=== PATIENT | female | born 1960 | race Caucasian/White ===

== ENCOUNTER 2017-03-02 11:49 | Emergency (ER) | payer BC ==
--- NOTE | 2017-03-02 14:44 | CR ---
Chest 2V FINDINGS: The heart and vascular structures are normal in appearance. No infiltrates or effusions ar e demonstrated. The skeletal structures are unremarkable. IMPRESSION: Negative exam.
[2017-03-02 14:45] VITALS: BP 181/96
[2017-03-02] MEDS ORDERED: Potassium Chloride 20 MEQ Tab.ER PO ONE (15:27)
--- NOTE | 2017-03-02 15:31 | EDM.PDOC ---
ED HPI GENERAL MEDICAL PROBLEM - General Chief Complaint: Cardiovascular Problem Stated Complaint: BLOOD PRESSURE IS HIGH Time Seen by Provider: 03/02/17 14:05 Source of Information: Reports: Patient History Limitations: Reports: No Limitations - History of Present Illness INITIAL COMMENTS - FREE TEXT/NARRATIVE: Patient presents for evaluation and treatment persistent blood pressure elevation. The patient's blood pressure was previously treated with metoprolol and hydrochlorothiazide. The hydrochlorothiazide was discontinued due to hypo- kalemia. Recently her blood pressures elevated, it was thought that her neck pain was causing the elevation of her blood pressure. She did have injections in her neck and her blood pressure remains elevated when the pain has been relieved. She will reinitiate hydrochlorothiazide last week, blood pressure remains elevated. 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) - Related Data Allergies Allergy/AdvReac Type Severity Reaction Status Date / Time hydrocodone bitartrate Allergy Itching Verified 03/02/17 13:52 [From Vicodin] Home Meds: Home Meds Cholecalciferol (Vitamin D3) [Vitamin D] 1 tab PO DAILY 11/05/14 [History] Magnesium 200 mg PO DAILY 11/05/14 [History] Metoprolol Succinate [Toprol XL] 25 mg PO DAILY 11/05/14 [History] [place]-3 Fatty Acids/Fish Oil [Fish Oil 1,200 mg Softgel] 1 cap PO DAILY [History] Vitamin B Complex 1 cap PO DAILY 11/05/14 [History] Acetaminophen/Caffeine [Excedrin Tension Headache] 2 tab PO DAILY PRN 03/02/17 [ History] Hydrochlorothiazide 1 tab PO DAILY 03/02/17 [History] Multivitamin [Multivitamins] 1 tab PO DAILY 03/02/17 [History] Ribose [Cytose] 1 dose PO DAILY 03/02/17 [History] Sertraline [Zoloft] 1 tab PO DAILY 03/02/17 [History] Vit C/Clark [place] Cel[place] Ex/Grp E [[place]] 1 tab PO BID 03/02/17 [History] Past Medical History HEENT History: Reports: Impaired Vision Cardiovascular History: Reports: Hypertension Respiratory History: Reports: Sleep Apnea 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: Neurological History: Reports: Headaches, Chronic Psychiatric History: Reports: Anxiety, Depression - Past Surgical History Female Surgical History: Reports: Hysterectomy Endocrine Surgical History: Reports: Parathyroidectomy Social & Family History - Tobacco Use Smoking Status *Q: Never Smoker - Alcohol Use Days Per Week of Alcohol Use: 0 - Recreational Drug Use Recreational Drug Use: No ED ROS GENERAL - Review of Systems Review Of Systems: See Below Constitutional: Reports: No Symptoms HEENT: Reports: No Symptoms Respiratory: Reports: No Symptoms Cardiovascular: Reports: No Symptoms Endocrine: Reports: No Symptoms GI/Abdominal: Reports: No Symptoms : Reports: No Symptoms Musculoskeletal: Reports: No Symptoms Skin: Reports: No Symptoms Neurological: Reports: No Symptoms Psychiatric: Reports: No Symptoms ED EXAM, GENERAL - Physical Exam Exam: See Below Exam Limited By: No Limitations General Appearance: Alert, WD/WN, No Apparent Distress, Anxious Eye Exam: Bilateral Eye: Normal Inspection Ears: Normal External Exam, Hearing Grossly Normal Nose: Normal Inspection Throat/Mouth: Normal Inspection, Normal Lips, Normal Voice Head: Atraumatic, Normocephalic Neck: Normal Inspection Respiratory/Chest: No Respiratory Distress, Lungs Clear Cardiovascular: Normal Peripheral Pulses, Regular Rate, Rhythm, No Murmur GI/Abdominal: Soft Back Exam: Normal Inspection Extremities: Normal Inspection Neurological: Alert, Oriented Psychiatric: Normal Affect, Normal Mood Skin Exam: Warm, Dry, Intact, Normal Color, No Rash Lymphatic: No Adenopathy Course - Vital Signs Last Recorded V/S: Last Vital Signs Temp 96.0 F 03/02/17 13:50 Pulse 61 03/02/17 14:45 Resp 14 03/02/17 14:45 BP 181/96 H 03/02/17 14:45 Pulse Ox 97 03/02/17 14:45 - Orders/Labs/Meds Labs: Laboratory Tests 03/02/17 03/02/17 03/02/17 Range/Units 14:13 14:13 14:43 WBC 13.9 H (4.5-11.0) K/uL RBC 5.21 (3.30-5.50) M/uL Hgb 15.1 H D (12.0-15.0) g/dL Hct 45.0 (36.0-48.0) % MCV 86 (80-98) fL MCH 29 (27-31) pg MCHC 34 (32-36) % Plt Count 295 (150-400) K/uL Neut % (Auto) 65 (36-66) % Lymph % (Auto) 21 L (24-44) % [place] % (Auto) 12 H (2-6) % Eos % (Auto) 1 L (2-4) % Baso % (Auto) 1 (0-1) % Sodium 139 L (140-148) mmol/L Potassium 3.5 L (3.6-5.2) mmol/L Chloride 98 L (100-108) mmol/L Carbon Dioxide 35 H (21-32) mmol/L Anion Gap 9.5 (5.0-14.0) mmol/L BUN 17 (7-18) mg/dL Creatinine 0.8 (0.6-1.0) mg/dL Est Cr Clr Drug Dosing 66.19 mL/min Estimated GFR (MDRD) > 60 (>60) Glucose 87 (74-106) mg/dL Calcium 9.1 (8.5-10.1) mg/dL Total Bilirubin 0.4 (0.2-1.0) mg/dL AST 17 (15-37) U/L ALT 44 D (12-78) U/L Alkaline Phosphatase 61 (46-116) U/L Total Protein 8.1 (6.4-8.2) g/dL Albumin 3.9 (3.4-5.0) g/dL Globulin 4.2 H (2.3-3.5) g/dL Albumin/Globulin Ratio 0.9 L (1.2-2.2) Urine Color Yellow Urine Appearance Slightly cloudy Urine pH 6.5 (4.5-8.0) Ur Specific [place] 1.005 L (1.008-1.030) Urine Protein Negative (NEGATIVE) mg/dL Urine Glucose (UA) Negative (NEGATIVE) mg/dL Urine Ketones Negative (NEGATIVE) mg/dL Urine Occult Blood Large (NEGATIVE) Urine Nitrite Negative (NEGATIVE) Urine Bilirubin Negative (NEGATIVE) Urine Urobilinogen Normal (NORMAL) mg/dL Ur Leukocyte Esterase Negative (NEGATIVE) Urine RBC 50-75 H (0-5) Urine WBC Not seen (0-5) Ur Epithelial Cells Few Amorphous Sediment Rare Urine Bacteria Rare Urine Mucus Rare Meds: Medications Discontinued Medications Generic Name Dose Route Start Last Admin Trade Name Sarwat PRN Reason Stop Dose Admin Potassium Chloride 40 meq 03/02/17 15:27 03/02/17 15:35 Klor-Con M20 PO 03/02/17 15:28 40 meq ONETIME ONE Administration Departure - Departure Time of Disposition: 15:28 Disposition: Home, Self-Care 01 Condition: Good (Essential hypertension) Clinical Impression: Essential hypertension Instructions: Hypertension, [id number] Referrals: Tulio Peñaloza MD [Primary Care Provider] - Forms: ED Department Discharge Additional Instructions: Patient is evaluated in the emergency room for her high blood pressure. The patient's blood pressure has not return to normal after having her neck pain treated. The hydrochlorothiazide has not returned her blood pressure to normal levels. The patient does have microscopic blood in the urine. She does have elevated hemoglobin. The patient's chest x-ray showed no abnormalities. The patient will stop taking hydrochlorothiazide. She was given a dose of potassium chloride in the emergency room. She is advised to eat a banana daily to keep her potassium level elevated. The patient will be started on lisinopril 10 mg daily. She'll follow up with her health care provider to monitor her blood pressure control. - Problem List & Annotations (1) Essential hypertension SNOMED Code(s): 62572909 Code(s): I10 - ESSENTIAL (PRIMARY) HYPERTENSION Status: Acute Priority: Medium Current Visit: Yes - Problem List Review Problem List Initiated/Reviewed/Updated: Yes
== END 2017-03-02 15:45 | disposition home or self-care (01) ==
LOC: JP.ED 11:49
DX: I10 Essential (primary) hypertension (principal); H54.7 Unspecified visual loss; F41.9 Anxiety disorder, unspecified; F32.9 Major depressive disorder, single episode, unspecified; Z88.8 Allergy status to other drugs, medicaments and biological substances; Z90.710 Acquired absence of both cervix and uterus; Z79.899 Other long term (current) drug therapy
CPT/HCPCS: 36415; 71020; 80053; 81001; 85025; 99284; A9270

== ENCOUNTER 2018-08-22 11:52 | Emergency (ER) | payer BC ==
[2018-08-22] MEDS ORDERED: Nitroglycerin 0.4 MG Tab.SL ONE (12:38)
[2018-08-22] MEDS ORDERED: Aspirin 81 MG Tab.Chew ONE (12:38)
[2018-08-22] MEDS ORDERED: Aspirin 81 MG Tab.Chew PO ONE (12:39)
[2018-08-22] MEDS ORDERED: Nitroglycerin 0.4 MG Tab.SL SL ONE (12:40)
--- NOTE | 2018-08-22 13:15 | EDM.PDOC ---
ED HPI GENERAL MEDICAL PROBLEM - General Chief Complaint: Gastrointestinal Problem Stated Complaint: ABDOMINAL PAIN/CHEST PRESSURE Time Seen by Provider: 08/22/18 12:20 Source of Information: Reports: Patient History Limitations: Reports: No Limitations - History of Present Illness INITIAL COMMENTS - FREE TEXT/NARRATIVE: 51-year-old with history of hypertension who presents with concerns of chest pain. She reports that she was sitting at her computer at approximately 9:30 this morning when she had the sudden onset of chest pain. The pain is achy. It radiates into her back. It does not go down her arm. There is no associated dyspnea or cough. There does seem to be a positional component to the pain. No changes with exertion. No history of cardiac disease. No family history of heart disease. No nausea vomiting or diarrhea/bloody stools. No history of blood clots. No lower extremity swelling or pain, recent travel or surgery. - Related Data Allergies Allergy/AdvReac Type Severity Reaction Status Date / Time hydrocodone bitartrate Allergy Itching Verified 08/22/18 12:11 [From Vicodin] Home Meds: Home Meds Cholecalciferol (Vitamin D3) [Vitamin D] 1 tab PO DAILY 11/05/14 [History] Magnesium 200 mg PO DAILY 11/05/14 [History] [place]-3 Fatty Acids/Fish Oil [Fish Oil 1,200 mg Softgel] 1 cap PO DAILY [History] Vitamin B Complex 1 cap PO DAILY 11/05/14 [History] Acetaminophen/Caffeine [Excedrin Tension Headache] 2 tab PO DAILY PRN 03/02/17 [ History] Multivitamin [Multivitamins] 1 tab PO DAILY 03/02/17 [History] Sertraline [Zoloft] 1 tab PO DAILY 03/02/17 [History] amLODIPine Besylate [Amlodipine Besylate] 1 tab PO DAILY 08/22/18 [History] Past Medical History HEENT History: Reports: Impaired Vision Cardiovascular History: Reports: Hypertension Respiratory History: Reports: Sleep Apnea 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: Neurological History: Reports: Headaches, Chronic Psychiatric History: Reports: Anxiety, Depression - Past Surgical History Female Surgical History: Reports: Hysterectomy Endocrine Surgical History: Reports: Parathyroidectomy Social & Family History - Tobacco Use Smoking Status *Q: Never Smoker ED ROS GENERAL - Review of Systems Review Of Systems: See Below Constitutional: Reports: No Symptoms HEENT: Reports: No Symptoms Respiratory: Denies: Shortness of Breath Cardiovascular: Reports: Chest Pain Endocrine: Reports: No Symptoms GI/Abdominal: Reports: No Symptoms : Reports: No Symptoms Musculoskeletal: Reports: No Symptoms Skin: Reports: No Symptoms Neurological: Reports: No Symptoms Psychiatric: Reports: No Symptoms Hematologic/Lymphatic: Reports: No Symptoms Immunologic: Reports: No Symptoms ED EXAM, GI/ABD - Physical Exam Exam: See Below Exam Limited By: No Limitations General Appearance: Alert, WD/WN Ears: Normal External Exam Nose: Normal Inspection Throat/Mouth: Normal Inspection Head: Atraumatic, Normocephalic Neck: Normal Inspection Respiratory/Chest: No Respiratory Distress, Lungs Clear, Other (no chest wall tenderness) Cardiovascular: Regular Rate, Rhythm GI/Abdominal Exam: Soft, Non-Tender Back Exam: Normal Inspection Extremities: Normal Inspection Neurological: Alert, Oriented Psychiatric: Normal Affect, Normal Mood Skin Exam: Warm, Dry EKG INTERPRETATION EKG Date: 08/22/18 Rhythm: NSR [place]: Normal P-Wave: Present QRS: Normal ST-T: Normal Course - Vital Signs Last Recorded V/S: Last Vital Signs Temp 35.1 C L 08/22/18 12:21 Pulse 83 08/22/18 14:31 Resp 16 08/22/18 14:31 BP 153/84 H 08/22/18 15:17 Pulse Ox 100 08/22/18 14:31 - Orders/Labs/Meds Orders: Active Orders 24 hr Category Date Time Status EKG Documentation Completion [RC] ASDIRECTED Care 08/22/18 12:39 Active Abdomen Ltd [US] Stat Exams 08/22/18 13:32 Taken Chest 2V [CR] Stat Exams 08/22/18 12:39 Taken EKG 12 Lead [EK] Routine Ther 08/22/18 12:39 Ordered Labs: Laboratory Tests 08/22/18 08/22/18 08/22/18 Range/Units 12:47 12:47 12:47 WBC 8.0 (4.5-11.0) K/uL RBC 4.55 (3.30-5.50) M/uL Hgb 12.9 D (12.0-15.0) g/dL Hct 38.7 (36.0-48.0) % MCV 85 (80-98) fL MCH 28 (27-31) pg MCHC 33 (32-36) % Plt Count 228 (150-400) K/uL Sodium 140 (140-148) mmol/L Potassium 3.4 L (3.6-5.2) mmol/L Chloride 100 (100-108) mmol/L Carbon Dioxide 31 (21-32) mmol/L Anion Gap 12.4 (5.0-14.0) mmol/L BUN 12 (7-18) mg/dL Creatinine 0.9 (0.6-1.0) mg/dL Est Cr Clr Drug Dosing 58.12 mL/min Estimated GFR (MDRD) > 60 (>60) Glucose 149 H (74-106) mg/dL Calcium 8.9 (8.5-10.1) mg/dL Total Bilirubin 1.2 H D (0.2-1.0) mg/dL AST 94 H D (15-37) U/L ALT 99 H (12-78) U/L Alkaline Phosphatase 60 (46-116) U/L Troponin I < 0.017 (0.000-0.056) ng/mL Total Protein 7.1 (6.4-8.2) g/dL Albumin 3.4 (3.4-5.0) g/dL Globulin 3.7 H (2.3-3.5) g/dL Albumin/Globulin Ratio 0.9 L (1.2-2.2) Lipase 132 (73-393) U/L 08/22/18 Range/Units 15:31 WBC (4.5-11.0) K/uL RBC (3.30-5.50) M/uL Hgb (12.0-15.0) g/dL Hct (36.0-48.0) % MCV (80-98) fL MCH (27-31) pg MCHC (32-36) % Plt Count (150-400) K/uL Sodium (140-148) mmol/L Potassium (3.6-5.2) mmol/L Chloride (100-108) mmol/L Carbon Dioxide (21-32) mmol/L Anion Gap (5.0-14.0) mmol/L BUN (7-18) mg/dL Creatinine (0.6-1.0) mg/dL Est Cr Clr Drug Dosing mL/min Estimated GFR (MDRD) (>60) Glucose (74-106) mg/dL Calcium (8.5-10.1) mg/dL Total Bilirubin (0.2-1.0) mg/dL AST (15-37) U/L ALT (12-78) U/L Alkaline Phosphatase (46-116) U/L Troponin I < 0.017 (0.000-0.056) ng/mL Total Protein (6.4-8.2) g/dL Albumin (3.4-5.0) g/dL Globulin (2.3-3.5) g/dL Albumin/Globulin Ratio (1.2-2.2) Lipase (73-393) U/L Meds: Medications Discontinued Medications Generic Name Dose Route Start Last Admin Trade Name Sarwat PRN Reason Stop Dose Admin Aspirin 324 mg 08/22/18 12:39 08/22/18 12:40 Aspirin PO 08/22/18 12:40 324 mg ONETIME ONE Administration Aspirin Confirm 08/22/18 12:38 Aspirin Administered 08/22/18 12:39 Dose 324 mg .ROUTE .STK-MED ONE Nitroglycerin 0.4 mg 08/22/18 12:40 08/22/18 12:58 Nitrostat SL 08/22/18 12:41 0.4 mg ONETIME ONE Administration Nitroglycerin Confirm 08/22/18 12:38 Nitrostat Administered 08/22/18 12:39 Dose 0.4 mg .ROUTE .STK-MED ONE - Re-Assessments/Exams Free Text/Narrative Re-Assessment/Exam: 57-year-old who presents to concerns of sudden onset chest pain this morning. On exam noted normal vital signs, no appreciable chest wall tenderness. No abdominal tenderness EKG is nonischemic When initiate workup with labs included troponin testing, chest x-ray, administer aspirin and trial of nitroglycerin. 08/22/18 13:14 Free Text/Narrative Re-Assessment/Exam: Initial work up remarkable for elevated LFTs. CXR normal. Pain resolved Obtained RUQ US - shows stones in the GB neck. Repeat troponin negative. Symptoms due seem consistent with symptomatic cholelithiasis, patient does endorse eating becerril prior to onset of pain today. We discussed surgical referral for elective cholecystectomy, patient declining this at this time. Safe for discharge, discussed dietary modification, with f/u with PCP 08/22/18 16:05 Departure - Departure Time of Disposition: 16:08 Disposition: Home, Self-Care 01 Clinical Impression: Cholelithiasis Qualifiers: Cholelithiasis location: gallbladder Cholecystitis presence: without cholecystitis Biliary obstruction: without biliary obstruction Qualified Code(s) : K80.20 - Calculus of gallbladder without cholecystitis without obstruction - Discharge Information *PRESCRIPTION DRUG MONITORING PROGRAM REVIEWED*: No *COPY OF PRESCRIPTION DRUG MONITORING REPORT IN PATIENT FELIX: No Referrals: Tulio Peñaloza MD [Primary Care Provider] - Forms: ED Department Discharge Additional Instructions: You are being diagnosed with symptomatic gallstones Please return to the ER for fevers, worsening or persistent pain as discussed Follow up with your primary doctor to discuss referral to a surgeon - My Orders Last 24 Hours: My Active Orders 08/22/18 12:39 EKG Documentation Completion [RC] ASDIRECTED Chest 2V [CR] Stat EKG 12 Lead [EK] Routine 08/22/18 13:32 Abdomen Ltd [US] Stat - Assessment/Plan Last 24 Hours: My Active Orders 08/22/18 12:39 EKG Documentation Completion [RC] ASDIRECTED Chest 2V [CR] Stat EKG 12 Lead [EK] Routine 08/22/18 13:32 Abdomen Ltd [US] Stat
[2018-08-22 15:17] VITALS: BP 153/84
--- NOTE | 2018-08-23 08:55 | CR ---
CHEST: 2 view CLINICAL HISTORY:Chest pain COMPARISON:2017 FINDINGS: The heart size, pulmonary vascular and hilar structures are normal. No infiltrate effusion or pneumothorax is seen. IMPRESSION: No acute cardiopulmonary process.
== END 2018-08-22 16:26 | disposition home or self-care (01) ==
LOC: JP.ED 11:52
DX: K80.20 Calculus of gallbladder without cholecystitis without obstruction (principal); I10 Essential (primary) hypertension; F41.9 Anxiety disorder, unspecified; F32.9 Major depressive disorder, single episode, unspecified; Z88.5 Allergy status to narcotic agent; Z79.899 Other long term (current) drug therapy
CPT/HCPCS: 36415; 71046; 76705; 80053; 83690; 84484; 85027; 93005; 99285; A9270

== ENCOUNTER 2019-02-21 08:35 | Day surgery (SDC) | payer BC ==
[2019-02-21] MEDS ORDERED: Midazolam 1 MG/ML 2 ML SDV ONE (09:01)
[2019-02-21] MEDS ORDERED: Propofol 200 MG/20 ML SDV ONE ×2 (09:01→11:10)
[2019-02-21] MEDS ORDERED: fentaNYL 100 MCG/2 ML SDV ONE (09:01)
[2019-02-21] MEDS ORDERED: Lactated Ringers 1,000 ML IV SCH (09:45)
[2019-02-21] MEDS ORDERED: Lidocaine 1% with EPINEPHrine 1:100,000 50 ML MDV ONE (10:09)
[2019-02-21] MEDS ORDERED: Bupivacaine 0.5% 50 ML MDV ONE (10:09)
[2019-02-21 12:26] VITALS: BP 126/90; PULSE 81
--- NOTE | 2019-02-22 08:33 | OR ---
DATE OF PROCEDURE: 02/21/2019 PREOPERATIVE DIAGNOSES: Colon cancer screening, external hemorrhoid. POSTOPERATIVE DIAGNOSES: Unremarkable colonoscopy, external hemorrhoid. PROCEDURE: Colonoscopy to the cecum with external hemorrhoidectomy. SURGEON: Armando Bejarano MD ANESTHESIA: IV anesthesia with monitored anesthesia care. INDICATION: This 58-year-old white female is referred for a colonoscopy for colon cancer screening. Her last colonoscopic exam was done 10 years ago. She complains of an external hemorrhoid and would like to have it removed also. I counseled her then for a colonoscopy with possible biopsy and polypectomy and hemorrhoidectomy, including risks alternatives, and she gave her informed consent to proceed. DESCRIPTION OF PROCEDURE: The patient was placed in the left lateral decubitus position. IV anesthesia was administered by the Anesthesia Service. Time-out was held. A rectal exam was performed, which was unremarkable except for the external hemorrhoid. The flexible video Olympus colonoscope was introduced through her anus, up her rectum, and out her colon all the way to the cecum. Once the cecum was reached, the scope was slowly withdrawn examining the mucosa throughout. No mucosal abnormalities were noted. The scope was retroflexed in the rectum with the distal rectum appearing unremarkable, except for some minor hemorrhoidal tissue seen. The scope was straightened and removed. She was then placed in javy-knife position. Her anal and perianal areas were prepped and draped in the usual sterile fashion. Lidocaine 1% with epinephrine in a 50:50 mix with 0.5% Marcaine was infiltrated about the hemorrhoid, which was at the 5 o'clock position with 12 o'clock being anterior. A stitch was placed of 3-0 chromic. The hemorrhoid was then excised using a radial elliptical incision and was sent to pathology. The incision was closed with the 3-0 chromic stitch in a running locking fashion. A sterile dressing was applied. She was placed supine on the cart and brought from the operating room having tolerated the procedure well, in good condition. Armando Bejarano MD /[id number] MTDD
== END 2019-02-21 12:47 | disposition home or self-care (01) ==
LOC: JP.SDS 08:35
PROVIDERS: ATTEND Surgery
DX: Z12.11 Encounter for screening for malignant neoplasm of colon (principal); K64.4 Residual hemorrhoidal skin tags; I10 Essential (primary) hypertension; G47.33 Obstructive sleep apnea (adult) (pediatric); Z88.5 Allergy status to narcotic agent; Z88.8 Allergy status to other drugs, medicaments and biological substances
CPT/HCPCS: 45378; 46999; J2250; J2704; J3010; J3490; J7120; 88304